=== PATIENT | female | born 1935 | race Caucasian/White ===

== ENCOUNTER 2019-05-22 15:42 | Outpatient (CLI) | payer MEDICARE, SELFPAY ==
--- NOTE | ~2019-05-22 | XR_ITS ---
XR chest 2V DATE: 05/22/2019 16:11 INDICATION: COPD TECHNIQUE: PA and lateral views COMPARISON: None FINDINGS: Mild bilateral hyperinflation. No pulmonary infiltrate or consolidation, pleural effusion o r pulmonary vascular congestion or pneumothorax. Normal heart size. There is thoracic aortic calcification and tortuosity and coronary artery calcific ation. Diffuse osteopenia. IMPRESSION: No active cardiopulmonary disease Thoracic aortic and coronary artery atherosclerosis Reviewed, dictated and finalized at location B. OR BI DEVELOPER
== END 2019-05-22 15:43 | disposition home or self-care (01) ==
LOC: ANHIMG 15:54
PROVIDERS: PCP Family Medicine; Visit Provider Family Medicine
DX: J44.9 Chronic obstructive pulmonary disease, unspecified (principal)
CPT/HCPCS: 71046

== ENCOUNTER 2019-07-21 12:39 | Outpatient (CLI) | payer MEDICARE, SELFPAY ==
--- NOTE | ~2019-07-21 | CT_ITS ---
EXAMINATION: CT brain wo con EXAM DATE: 07/21/2019 13:03 INDICATION: Nausea, visual disturbance. TECHNIQUE: Spiral CT of the head was performed without contrast. Axial, coronal and sagittal images were reviewed. The dose-length product (DLP) for this examination was 529.67 mGy-cm. The exposure w as tailored according to patient size, and iterative reconstruction (ASIR) was used as additional dos e reduction technique. There is no prior study for comparison. FINDINGS: There is no acute intraparenchymal hemorrhage. No evidence of intraparenchymal brain mass lesion. No evidence of acute infarction. Mild microangiopathy and cerebral atrophy. There is no mass effect or midline shift. The ventricles are normal in size. There are no extra-axial collections. There are no acute calvarial fractures. The orbits are unremarkable. Soft tissue is unremarkable. The visualized sinuses and mastoid air cells are well aerated. IMPRESSION: 1. No acute intracranial findings. 2. Mild age-related findings. Reviewed, dictated and finalized at location B.
--- NOTE | ~2019-07-21 | US_ITS ---
EXAMINATION: US carotid duplex BI DATE: 07/21/2019 13:24 INDICATION: Unspecified visual disturbance. TECHNIQUE: Grayscale, color Doppler, and pulsed Doppler images of the cervical carotid arteries were obtained. The degree of vessel stenosis is placed in one of the following categories: normal, <50%, 5 0-69%, >=70% but less than near-occlusion, near-occlusion, or total occlusion. Note that percent sten osis relative to normal distal artery lumen diameter is indirectly measured from velocity measurement s as described by Aubrey, et al. Radiology 2003; 229:340-346. COMPARISON: None. FINDINGS: RIGHT: The right common carotid artery (CCA) peak systolic velocity (PSV) is 47 cm/s. The right internal car otid artery (ICA) PSV is 74 cm/s. The right ICA end-diastolic velocity (EDV) is 30 cm/s. The right IC A/CCA PSV ratio is 1.6. Grayscale and color Doppler images demonstrate plaque in the ICA. There is an tegrade flow in the right vertebral artery. LEFT: The left CCA PSV is 69 cm/s. The left ICA PSV is 72 cm/s. The left ICA EDV is 29 cm/s. The left ICA/C CA PSV ratio is 1.1. Grayscale and color Doppler images yield an estimate of <50% diameter reduction from plaque in the ICA. There is antegrade flow in the left vertebral artery. IMPRESSION: 1. <50% stenosis in the right internal carotid artery. 2. <50% stenosis in the left internal carotid artery. Reviewed, dictated and finalized at location A.
== END 2019-07-21 12:40 | disposition home or self-care (01) ==
PROVIDERS: PCP Family Medicine; Visit Provider Family Medicine
DX: H53.9 Unspecified visual disturbance (principal); I65.23 Occlusion and stenosis of bilateral carotid arteries
CPT/HCPCS: 70450; 93880

== ENCOUNTER 2020-06-16 10:53 | Emergency (ER) | payer MEDICARE, SELFPAY ==
--- NOTE | ~2020-06-16 | XR_ITS ---
EXAMINATION: XR chest 2V DATE: 06/16/2020 11:33 INDICATION: COPD presenting with congestion and shortness of breath. TECHNIQUE: PA and lateral views of the chest were obtained. COMPARISON: Chest radiograph dated 05/22/2019 FINDINGS: Hyperexpansion of lungs consistent with given history of COPD. Right apical pleural-parenchymal scarr ing. Increasing opacities at the anteromedial right lower lung zone which could represent atelectasis and/or pneumonia in the right middle lobe. Mild linear discoid atelectasis at the left posterior sul cus. There is blunting of the right posterior sulcus and costophrenic angle consistent with small rig ht pleural effusion. There are few scattered bilateral calcified pulmonary nodules consistent with ol d granulomatous disease. No pneumothorax. Heart size is normal. Tortuous and atherosclerotic thoracic aorta. Coronary artery calcifications and likely coronary artery stenting. IMPRESSION: 1. Opacities at the anteromedial right lung base which could represent right middle lobe atelectasis and/or pneumonia. 2. Small right pleural effusion. 3. Hyperexpansion of the lungs consistent with given history of COPD. Reviewed, dictated and finalized at location B. E FILER IMPRESSION: 1. Opacities at the anteromedial right lung base which could represent right mi ddle lobe atelectasis and/or pneumonia. 2. Small right pleural effusion. 3. Hyperexpansion of the lungs consistent with given history of COPD.
[2020-06-16 11:14] VITALS: BP 118/99; PULSE 123; RESP 36; TEMP 36.8; O2SAT 95
--- NOTE | 2020-06-16 11:19 | ED.URI ---
HPI - URI/Sore Throat General Chief Complaint: Upper Respiratory Infection Stated Complaint: weakness/congestion/loss of appetite/nausea Source: patient and RN notes reviewed Limitations: no limitations History of Present Illness HPI Narrative: The elderly patient, who is ongoing smoker with COPD, presents with congestion. Patient states she is a 1 day worsening of half week history of cough, congestion. No fever measured, CP, V/D,Calf pain/edema, sputum production, rash, loss of taste/ smell. Symptoms are mild, worse with activity; she has not had a Covid vaccine or disease. Vital signs remarkable for resting tachycardia, and ambulatory pulse ox which remains unchanged at 95. Patient advised that she needs to go to hospital, to which she agrees. Related Data Home Medications Medication Instructions Recorded Confirmed albuterol 90 mcg INHALATION Q4H PRN 06/16/20 06/16/20 albuterol sulfate 2.5 mg INHALATION Q4H PRN 06/16/20 06/16/20 lisinopril 40 mg PO DAILY 06/16/20 06/16/20 metoprolol tartrate 25 mg PO DAILY 06/16/20 06/16/20 omeprazole 20 mg PO DAILY 06/16/20 06/16/20 tiotropium-olodaterol [Stiolto 2 puff INHALATION DAILY 06/16/20 06/16/20 Respimat] Allergies Allergy/AdvReac Type Severity Reaction Status Date / Time No Known Allergies Allergy Verified 06/16/20 11:00 Review of Systems Review of Systems: Narrative: General/Constitutional: No weight loss,fever Eyes: N0: Redness,discharge Ears/Nose/Throat: No: Epistaxis,ear discharge Respiratory: Denies: Hemoptysis Gastrointestinal: No Vomiting, Bleeding-rectal Skin: No Lumps, eruption Neurologic: No Focal Weakness,Sz Hematologic: Denies: Petechiae/Purpura Psychiatric: No: Suicida ideationl All Other Systems: Reviewed and Negative PMFSH Comments At time of signature, agree with nursing past medical, surgical, social and family history. There is no relevant family history pertinent to the presenting complaint Exam Narrative: Exam Narrative: General Appearance: Aged l appearing, in, No distress EYE: PERRLA, EOMI, Conjunctiva clear Ears: External ear normal, Nose: Normal nose, Mouth/Throat: Normal appearing, Normal lips, MM moist, Uvula midline, Pharyngeal erythema Respiratory: Airway patent, tachypneic, increased AP diameter, decreased BS at bases, fine exp wheeze Cardiovascular: No JVD Skin: Warm, Dry, Normal color Neurological: A&O x3, Speech clear, CN II-X intact Psychiatric: Normal mood, Normal affect Course Course Emergency Course: Films visualized, interpreted by radiologist, agree, ABnormal see report MDM Med Decision Making DATA REVIEWED RADIOLOGY: ordered & reviewed PMH RECORDS: reviewed DISCUSSED: with another provider TEST : personally over-read RISKS of M &M CC/PROBLEM severe PROCEDURE low Tx OPTIONS Vital Signs Vital signs: Vital Signs Temperature 98.3 F 06/16/20 11:14 Pulse Rate 123 H 06/16/20 11:14 Respiratory Rate 36 H 06/16/20 11:14 Blood Pressure 118/99 H 06/16/20 11:14 Pulse Oximetry 95 06/16/20 11:14 Temperature 98.3 F 06/16/20 11:14 Pulse Rate 121 H 06/16/20 11:56 Respiratory Rate 28 H 06/16/20 11:56 Blood Pressure 121/61 06/16/20 11:56 Pulse Oximetry 97 06/16/20 11:56 MDM - URI/Sore Throat Lab Data Labs: Lab Results 06/16/20 Range/Units 11:22 POC SARS CoV-2 Ag Negative (Negative) Discharge Plan Discharge Clinical Impression: Pneumonia, COPD exacerbation Patient Disposition: Acute Care Hospital Condition: Serious Instructions: Pneumonia (ED) Additional Instructions: Go to hospital as discussed without fail Prescriptions: No Action omeprazole 20 mg capsule,delayed release(DR/EC) 20 mg PO DAILY RF: 0 lisinopril 40 mg tablet
[2020-06-16] MEDS: AZITHROMYCIN 250 MG TABLET 500 MG PO (11:46)
[2020-06-16 11:56] VITALS: BP 121/61; PULSE 121; RESP 28; O2SAT 97
== END 2020-06-16 11:56 | disposition short-term general hospital (02) ==
PROVIDERS: Emergency Provider Emergency Medicine; PCP Family Medicine
DX: J44.1 Chronic obstructive pulmonary disease with (acute) exacerbation (principal); Z20.822 Contact with and (suspected) exposure to COVID-19; F17.200 Nicotine dependence, unspecified, uncomplicated; I25.10 Atherosclerotic heart disease of native coronary artery without angina pectoris; Z95.5 Presence of coronary angioplasty implant and graft; I25.2 Old myocardial infarction; K21.9 Gastro-esophageal reflux disease without esophagitis; R73.03 Prediabetes
CPT/HCPCS: 71046; 87426; 99213; A9270; C9803; G0463

== ENCOUNTER 2022-01-05 12:23 | Inpatient (IN) | payer MEDICARE, SELFPAY ==
[2022-01-05] VITALS (14 sets, daily range): BP systolic 115–153; BP diastolic 70–100; PULSE 96–119; RESP 14–28; TEMP 36.2–36.6; O2SAT 94–100; BMI 25.9
--- NOTE | ~2022-01-05 | XR_ITS ---
EXAMINATION: XR chest 2V DATE: 01/05/2022 14:15 INDICATION: Chest pain and shortness of breath TECHNIQUE: AP and lateral views of the chest are obtained. COMPARISON: 06/16/2020, 05/22/2019 FINDINGS: The lungs are free of acute opacities. No pleural effusion or pneumothorax. The cardiomedia stinal silhouette is normal. There is moderate thoracic spondylosis. IMPRESSION: 1. No acute cardiopulmonary abnormality. Reviewed, dictated and finalized at location A.
--- NOTE | ~2022-01-05 | US_ITS ---
US right upper quadrant INDICATION: Abdominal pain PROCEDURE: Realtime right upper abdominal ultrasound. COMPARISON: No prior studies for comparison. FINDINGS: The pancreas is normal without focal mass or pancreatic ductal dilation. Liver echotexture is normal without focal mass or intrahepatic biliary dilatation. There is normal directional flow i n the portal vein. The gallbladder is normal without stones, gallbladder wall thickening or pericholecystic fluid. Comm on bile duct measures 7.5 mm. There is mild intrahepatic biliary dilatation. No sonographic Mendoza's sign. IMPRESSION: 1: Mild intrahepatic and extrahepatic biliary dilatation without evidence for obstructing stone or ma ss, possibly related to patient age. Reviewed, dictated and finalized at location A. IMPRESSION: 1: Mild intrahepatic and extrahepatic biliary dilatation without evidence for o bstructing stone or mass, possibly related to patient age.
--- NOTE | 2022-01-05 12:24 | ECG_ITS ---
Measurements Intervals [place] Rate: 111 P: 52 WV: 197 QRS: -29 QRSD: 126 T: 125 QT: 344 QTc: 468 Interpretive Statements SINUS TACHYCARDIA VENTRICULAR PREMATURE COMPLEX POSSIBLE LEFT ATRIAL ENLARGEMENT INTRAVENTRICULAR CONDUCTION DELAY CANNOT RULE OUT SEPTAL INFARCT, AGE INDETERMINATE ST-T WAVE ABNORMALITY IN LAT/HIGH LAT LEADS- CONSIDER ISCHEMIA BASELINE ARTIFACT- I, III, AVL ABNORMAL ECG NO PREVIOUS ECG AVAILABLE FOR COMPARISON Electronically Signed On 01-05-2022 13:00:14 CDT by Jassi Phillips D.O.
[2022-01-05 12:53] LABS: Basophils Percent Auto 0.3 % (0.2-1.2); Eosinophils Absolute Auto 0.1 K/mm3 (0-0.3); Eosinophils Percent Auto 0.8 % (0-4.4); Hematocrit 43.6 % (37.0-47.0); Hemoglobin 13.9 g/dL (12.0-15.0); Immature Granulocyte Absolute 0.05 K/mm3 (0.00-0.031); Immature Granulocyte Percent A 0.5 % (0-0.5); Lymphocytes Absolute Auto 1.08 K/mm3 (0.9-3.2); Lymphocytes Percent Auto 11.2 % (18.3-44.2); Mean Corpuscular HGB Conc 31.9 g/dl (32-36); Mean Corpuscular Hemoglobin 29.8 pg (26-34); Mean Corpuscular Volume 93.6 fl (80-100); Monocytes Absolute Auto 0.7 K/mm3 (0.1-0.6); Monocytes Percent Auto 7.2 % (2.6-8.5); Neutrophils Absolute Auto 7.7 K/mm3 (1.3-6.7); Platelet Count Result 194 k/mm3 (150-375); Red Blood Count 4.66 M/mm3 (4.2-5.4); Red Cell Distribution Width 14.2 % (11.5-14.5); White Blood Count 9.7 K/mm3 (4.5-10.0)
[2022-01-05 13:07] LABS: Alanine Aminotransferase 11 U/L (6-35); Albumin Level 3.9 g/dL (3.5-5.1); Alkaline Phosphatase 86 U/L (38-126); Anion Gap 10 mmol/L (8-16); Aspartate Amino Transferase 18 U/L (14-36); Bilirubin,Total 0.8 mg/dL (0.2-1.3); Blood Urea Nitrogen 14 mg/dL (7-17); Calcium 9.3 mg/dL (8.4-10.2); Carbon Dioxide 25 mmol/L (22-30); Chloride 95 mmol/L (98-107); Estimated CRCL calculation 28 ml/min; Estimated Glomerular Filt Rate 47; Glucose 164 mg/dL (65-110); Lipase 65 U/L (23-300); Sodium 130 mmol/L (137-145)
[2022-01-05 13:08] LABS: INR 1.1; Prothrombin Time 14.2 Seconds (11.1-14.7)
[2022-01-05 13:09] LABS: Partial Thromboplastin Time 35.4 SECONDS (22.3-36.8)
[2022-01-05 13:19] LABS: Troponin I 0.164 ng/mL (0.000-0.034)
[2022-01-05] MEDS: ASPIRIN 81 MG CHEWABLE TABLET 324 MG PO (14:14)
[2022-01-05] MEDS: HEPARIN SODIUM 5,000 UNITS/ML VIAL 3000 UNITS IV PUSH (14:37)
[2022-01-05] MEDS: HEPARIN SOD/D5W 100 UNITS/ML 25,000 UNITS/250 ML BAG 6 UNITS IV CONT (14:38)
--- NOTE | 2022-01-05 14:57 | ED.CHESTPAIN ---
HPI - Chest Pain General Chief Complaint: Chest Pain Stated Complaint: chest pain Time Seen by Provider: 01/05/22 13:59 History of Present Illness HPI narrative: Patient is an 86-year-old female who presents ER with chest discomfort. Reports yesterday she was having a lot of gas in her upper abdomen going into her chest. It is very uncomfortable. Symptoms returned today and then into her left chest. No exertional discomfort. Reports she is been belching. Has history of heart disease and sees Dr. Sears at [facility]. She has history of 3 stents. She has been compliant with home medication. Reports she is undergoing stress recently because her sister in the last week and there is a memorial tomorrow. Related Data Home Medications Medication Instructions Recorded Confirmed lisinopril 40 mg tablet 40 mg PO DAILY 06/16/20 01/05/22 metoprolol tartrate 25 mg tablet 25 mg PO Q12H 06/16/20 01/05/22 omeprazole 20 mg capsule,delayed 20 mg PO DAILY PRN Acid Reflux 06/16/20 01/05/22 release tiotropium 2.5 mcg-olodaterol 2.5 2 puff inhalation DAILY 06/16/20 01/05/22 mcg/actuation mist for inhalation (Stiolto Respimat) albuterol sulfate 90 mcg/actuation 1 puff inhalation DAILY PRN 01/05/22 01/05/22 aerosol inhaler Shortness Of Breath diphenhydramine HCl 25 mg capsule 25 mg PO TID PRN Nasal Congestion 01/05/22 01/05/22 (Benadryl) fluticasone propionate 50 1 spray intranasal BID 01/05/22 01/05/22 mcg/actuation nasal spray,suspension ipratropium 0.5 mg-albuterol 3 mg 3 ml inhalation TID 01/05/22 01/05/22 (2.5 mg base)/3 mL nebulization soln menthol 3.2 mg lozenges (Stephan 6.4 mg mucous membrane Q2-4H PRN 01/05/22 01/05/22 Cough Drops) Cough triamcinolone acetonide 0.1 % 1 applic topical DAILY PRN Rash 01/05/22 01/05/22 topical cream Allergies Allergy/AdvReac Type Severity Reaction Status Date / Time No Known Allergies Allergy Verified 01/05/22 16:43 Review of Systems Review of Systems: All systems reviewed & are unremarkable except as noted in HPI and below Constitutional: Constitutional: Denies chills, Denies fatigue and Denies fever(s) ENT: Denies nasal congestion and Denies sore throat Cardiovascular: Cardiovascular: Reports chest pain, Denies rapid heart rate and Denies radiating jaw, neck or arm pain Respiratory: Respiratory: Denies cough and Denies dyspnea Gastrointestinal: Gastrointestinal: Denies abdominal pain, Reports bloating, Denies nausea and Denies vomiting Musculoskeletal: Musculoskeletal: Denies back pain and Denies arthralgias [facility] Social History Social History Smoking packs per day: 1 Smoking cigarettes per day: 20.0 Years smoked: 40 Smoking pack-years: 40.00 Smoking status: Heavy tobacco smoker Tobacco type: cigarettes Alcohol intake: never Substance use: never Spiritual care concerns: No Exam Narrative: GENERAL: Well-appearing, well-nourished, and in no acute distress. HEAD: Normocephalic, atraumatic. EYES: PERRL and EOMI. ENT: Mucous membranes moist. CHEST: Clear to auscultation. No respiratory distress. HEART: Regular rate and rhythm. Normal peripheral pulses. ABDOMEN: Soft, nontender, nondistended, normal active bowel sounds. EXTREMITIES: Normal range of motion. No edema. SKIN: Warm, dry, no rash. NEURO: Alert and oriented x3. PSYCH: Normal mood and affect. Course Course Emergency Course: Discussed with cardiology and Dr. Lacy will come see the patient. Patient to be started on heparin drip and admitted to hospitalist service. Vital Signs Vital signs: Vital Signs Temperature 97.2 F L 01/05/22 12:47 Pulse Rate 110 H 01/05/22 12:47 Respiratory Rate 22 H 01/05/22 12:47 Blood Pressure 139/83 01/05/22 12:47 Pulse Oximetry 100 01/05/22 12:47 Oxygen Delivery Room Air 01/05/22 12:47 Temperature 97.9 F 01/05/22 16:00 Pulse Rate 114 H 01/05/22 16:00 Respiratory Rate 20
--- NOTE | 2022-01-05 15:15 | PM.CNCAR ---
Assessment and Plan Assessment and plan (1) Chest pain: Code(s): R07.9 - Chest pain, unspecified Status: Acute (2) Incomplete left bundle branch block: Code(s): I44.7 - Left bundle-branch block, unspecified Status: Acute (3) Troponin I above reference range: Code(s): R77.8 - Other specified abnormalities of plasma proteins Status: Acute Plan This is an 86-year-old woman apparently coronary disease remote history of percutaneous revascularization and history of ongoing smoking. She comes to the hospital with a multitude of symptoms including right and left lateral dominant pain, some low substernal or epigastric pain and then some frontal head pain as well. Her ECG demonstrates an incomplete left bundle branch block but no serious ischemic abnormalities her troponin level is modestly elevated. I would recommend aspirin, beta-odilia, heparin and statin therapy. She will be admitted to the hospital here where her troponins will be tracked. If there is a significant rise in the troponin then we will consider angiography while she is here at [facility]. I do not believe this is a situation where I would recommend urgent/emergent angiography right now. She has a variety of symptoms which are for the most part obviously not related to myocardial ischemia. Randy Lacy MD [facility] History of Present Illness History of Present Illness Consult date/time: 01/05/22 15:15 Reason For Visit: chest pain Narrative: This is an 86-year-old woman I am seeing in the emergency room who is being evaluated because of chest pain in a being asked to see her to determine if she really is needing urgent angiography. The patient is unknown to me prior to this encounter. She does have a history of coronary disease but does not receive any of her care here at [facility]. Her respiratory therapy manager is in the [place] area. She was in her usual state of health at home yesterday she started to have pain in her abdomen she describes some mid abdominal pain radiating to both the right and left upper quadrants and lateral abdominal area. She did not have any symptoms of pain in her chest at that time those symptoms wax and wane yesterday. She was concerned about her gallbladder because she says the pain began after eating a meal yesterday because of that she has not eaten anything since that. This morning she started to have some pain in the low substernal region that seemed different to her she then also had some pain up in her frontal aspect of her head sheath was concerned about her sinuses. Even though none of her physicians are here at [facility] she came here for evaluation. She states she did not go to her respiratory therapy manager practices because she did not think this was a cardiac problems. In the emergency room her electrocardiogram shows a sinus rhythm with an incomplete left bundle branch block. Troponin levels of course were done and they are elevated at 0.1. I am seeing her in this setting in consultation. Because of the elevated troponin she was started on a heparin infusion and given some aspirin. She is not having any shortness of breath orthopnea PND or edema. She had apparently has a history of coronary artery disease and had coronary stenting done many years ago she describes 2 stenting procedures 1 approximately 20 years ago and 1 about 18 years ago. We do not have any details of any of those procedures. She does not believe she has had any recent cardiac problems and she does follow-up with her respiratory therapy manager regularly. She has prescriptions for metoprolol lisinopril and is supposed to be taking aspirin. She is not sure that she takes any of this medicine. She is not on anti-lipid agent. There are no known medical allergies. She is a ongoing cigarette smoker despite advice of her physicians to abstain from smoking Review of Systems Constitutional: Constitutional: Reports lethargy Eyes: Eyes: Reports n
[2022-01-05 15:38] LABS: SARS-CoV-2 RNA PCR Negative
[2022-01-05 15:59] LABS: Troponin I 0.168 ng/mL (0.000-0.034)
--- NOTE | 2022-01-05 16:21 | ADMGEN ---
This patient, Carol Carmichael, was admitted to IMU Room 213-01. Patient/family oriented to hospital policies and general routines including ID bracelet, bed and alarms, visiting hours, pain management, procedures, bathroom and other care routines, personal items, smoking policy, room service/diet, and visiting hours. Information on how to activate the Rapid Response Team has been discussed. Patient/Family are encouraged to report perceived risks to care and to ask questions if they do not understand what they are told or what they should do.
[2022-01-05 20:03] LABS: Troponin I 0.161 ng/mL (0.000-0.034)
--- NOTE | 2022-01-05 20:27 | PM.IMHP ---
H&P: HPI History of Present Illness Date/Time: 01/05/22 20:27 Chief Complaint: Chest pain Narrative: this is a 86 year old female patient who has a history of coronary artery disease And COPD. the patient has a history of having 3 coronary stents. The patient also has a history of GERD and has not been taking her omeprazole recently. Patient is in the room belching. The patient's discomfort started yesterday and she has been having episodes of belching. Her symptoms aside yesterday and then returned today. The patient typically sees Dr. Greenberg at [facility]. She has been compliant with her home medications. The patient has been having a lot of emotional stress as 1 of her sisters just recently passed this last week. Her sodium is 130. Chloride 95. Blood sugar 164. Troponin 0.168 and 0.161. The patient is negative for COVID. The patient was started on heparin drip. Her EKG was read as sinus tachycardia ventricular premature complex cannot rule out septal infarction. Cardiology has been consulted and has already evaluated the patient. It was noted that her EKG demonstrated and incomplete left bundle branch block but no serous ischemic abnormalities. the patient has been complaining of epigastric pain that is across to her right and left upper quadrant. She said she feels a soreness in her left upper chest. Cardiology recommends aspirin, beta-odilia, heparin and statin therapy. the patient is being initially was being admitted to observation but then was changed to inpatient. date of service 01/05/2022 Review of Systems Review of Systems: See HPI All systems reviewed & are unremarkable except as noted in HPI and below Constitutional: Constitutional: Reports as per HPI and Reports no additional constitutional complaints Eyes: Eyes: Reports as per HPI and Reports no additional eye complaints ENT: Reports system reviewed and no additional complaints, except as documented and Reports Normal hearing present Cardiovascular: Cardiovascular: Reports no additional cardiovascular complaints Respiratory: Respiratory: Reports no additional respiratory complaints and Reports no additional respiratory complaints Gastrointestinal: Gastrointestinal: Reports as per HPI and Reports no additional gastrointestinal complaints Musculoskeletal: Musculoskeletal: Reports no additional musculoskeletal complaints Integumentary/Breasts: Skin/Breast: Reports system reviewed and no additional complaints, except as docu and Reports as per HPI Neurologic: Reports system reviewed and no additional complaints, except as documented, Reports as per HPI and Reports Normal hearing present Psychiatric: Psychiatric: Reports no additional psychiatric complaints and Reports as per HPI Endocrine: Endocrine: Reports no additional endocrine complaints Hematologic/Lymphatic: Hematologic/Lymphatic: Reports no additional hematologic/lymphatic complaints Allergic/Immunologic: Allergic/Immunologic: Reports no additional allergic/immunologic complaints [facility] Past Medical History Medical History (Updated 01/05/22 @ 20:44 by Sherice Ruiz NP) Chronic GERD COPD (chronic obstructive pulmonary disease) HTN (hypertension), malignant Tobacco abuse Surgical History Surgical History (Updated 01/05/22 @ 20:44 by Sherice Ruiz NP) H/O heart artery stent x3 H/O knee surgery H/O: hysterectomy History of appendectomy History of back surgery Family History Family History (Updated 01/05/22 @ 20:48 by Sherice Ruiz NP) Sibling Cancer 1 brother and 3 sisters had cancer Father Alcoholism Mother Heart disease Son Heart disease Social History Social History (Updated 01/05/22 @ 20:49 by Shreice Ruiz NP) Social History: the patient continues to smoke a pack a cigarettes a day. The patient had 4 children. She was a homemaker. She lives with her daughter. She denies any alcohol marijuana or illicit drugs. He
[2022-01-05 20:45] LABS: INR 1.1; Prothrombin Time 14.1 Seconds (11.1-14.7)
[2022-01-05 20:46] LABS: Partial Thromboplastin Time 51.9 SECONDS (22.3-36.8)
--- NOTE | 2022-01-05 21:00 | PC.NURSE ---
Patient's troponin resulted at 0.161 at 2001. This RN notified Dr. Christianson and received no new orders but to continue Heparin gtt at this time and will reassess in the morning. Will continue to monitor.
[2022-01-05] MEDS: HEPARIN SODIUM 5,000 UNITS/ML VIAL 4000 UNITS IV PUSH (21:01)
[2022-01-05] MEDS: ALBUTEROL SULFATE NEB 2.5 MG/3 ML INH INHALATION (21:10)
[2022-01-05] MEDS: IPRATROPIUM BR 0.02% INH SOLN 0.5 MG/2.5 ML VIAL INHALATION (21:10)
[2022-01-05] MEDS: methylPREDNISolone SOD SUCC 40 MG VIAL IV PUSH (21:31)
[2022-01-05] MEDS: METOPROLOL TARTRATE 25 MG TABLET PO (21:31)
[2022-01-05] MEDS: ACETAMINOPHEN 325 MG TABLET 650 MG PO (22:15)
[2022-01-06] VITALS (20 sets, daily range): BP systolic 110–124; BP diastolic 66–97; PULSE 74–119; RESP 16–20; TEMP 36.1–36.6; O2SAT 93–98
--- NOTE | 2022-01-06 | ECHO_ITS ---
Patient Info Name: Carol Carmichael Age: 86 years : 1935 Gender: Female Ht: 66 in Wt: 160 lbs BSA: 1.85 m2 HR: 78 bpm BP: 110 / 72 mmHg Heart Rhythm: Sinus Rhythm Technical Quality: Fair Exam Date: 01/06/2022 8:17 AM Exam Location: [facility] Pulmonary Exam Room: 213 Patient Status: Inpatient Admit Date: 01/05/2022 Staff Ordering Physician: Sherice Ruiz NP Information Technology Auditor: Adele Mejia RDCS Attending Provider: Randy Swartz MD Referring Physician: Sara BLOOD; Exam Type: CA echo dop color flow w con Study Info Indications - cad chest discomfort Complete two-dimensional, color flow and Doppler transthoracic echocardiogram is performed with contrast to opacify the left ventricle and to improve the deliniation of the left ventricle endocardial borders. Contrast/Agitated Saline Contrast/Ag. Saline: Definity Amount: 2.00 ml Administered By: Adele Mejia [facility] Existing IV Access: Yes IV Access Condition: patent with no signs of infiltration Summary 1. Moderate left ventricular enlargement with moderate eccentric left ventricular hypertrophy. Severe global hypokinesis is present with thinning and akinesis of the apex. False tendon is noted in the apex; doubt any pseudoaneurysm. Ejection fraction 15-20%. No thrombus visualized. Diastolic dysfunction is present. 2. Left atrial chamber dimension is moderately enlarged. 3. There is at least mild aortic valve stenosis with a peak velocity of 2.0 cm/s, mean gradient of 9 mmHg, and aortic valve area of 1.67 cm2. However, however, the peak transvalvular velocity may be low due to poor cardiac output and the aortic stenosis may be worse. There is severe calcification of the aortic valve with decreased valve excursion. Consider further evaluation of the degree of aortic stenosis if clinically indicated. 4. There is mild mitral valve regurgitation. 5. There is mild tricuspid valve regurgitation. 6. No pulmonary hypertension, estimated pulmonary arterial systolic pressure is 28 mmHg. 7. Normal sinus rhythm. Left Ventricle Left ventricular chamber dimension is moderately enlarged. Left ventricular systolic function is severely reduced, estimated at 15-20%. There is moderately increased left ventricular wall thickness. Left ventricular septal wall motion is normal. The left ventricular diastolic function is abnormal. Right Ventricle Right ventricular chamber dimension is normal. Right ventricular systolic function is normal. Left Atria Left atrial chamber dimension is moderately enlarged. Right Atria Right atrial chamber dimension is normal. Aortic Valve The aortic valve is trileaflet. There is no aortic valve sclerosis. There is at least mild aortic valve stenosis with a peak velocity of 2.0 cm/s, mean gradient of 9 mmHg, and aortic valve area of 1.67 cm2. However, however, the peak transvalvular velocity may be low due to poor cardiac output and the aortic stenosis may be worse. There is severe calcification of the aortic valve with decreased valve excursion. Consider further evaluation of the degree of aortic stenosis if clinically indicated. There is trace aortic valve regurgitation. There is moderate aortic valve calcification. Pulmonic Valve The pulmonic valve is normal. There is no pulmonic valve stenosis. There is no pulmonic regurgitation. Mitral Valve The mitral valve has normal leaflets. There is no mitral valve stenosis. There is mild mitral valv
[2022-01-06 03:44] LABS: Basophils Percent Auto 0.2 % (0.2-1.2); Eosinophils Percent Auto 0.2 % (0-4.4); Hematocrit 41.8 % (37.0-47.0); Hemoglobin 13.6 g/dL (12.0-15.0); Immature Granulocyte Absolute 0.03 K/mm3 (0.00-0.031); Immature Granulocyte Percent A 0.5 % (0-0.5); Lymphocytes Absolute Auto 0.51 K/mm3 (0.9-3.2); Lymphocytes Percent Auto 8.5 % (18.3-44.2); Mean Corpuscular HGB Conc 32.5 g/dl (32-36); Mean Corpuscular Volume 92.1 fl (80-100); Mean Platelet Volume 11.1 fl (7.4-10.4); Monocytes Absolute Auto 0.1 K/mm3 (0.1-0.6); Monocytes Percent Auto 1.8 % (2.6-8.5); Neutrophils Absolute Auto 5.3 K/mm3 (1.3-6.7); Neutrophils Percent Auto 88.8 % (45.5-73.1); Platelet Count Result 189 k/mm3 (150-375); Red Blood Count 4.54 M/mm3 (4.2-5.4); Red Cell Distribution Width 13.9 % (11.5-14.5)
[2022-01-06 03:47] LABS: Alanine Aminotransferase 11 U/L (6-35); Albumin Level 3.6 g/dL (3.5-5.1); Alkaline Phosphatase 82 U/L (38-126); Anion Gap 10 mmol/L (8-16); Aspartate Amino Transferase 20 U/L (14-36); Bilirubin,Total 0.7 mg/dL (0.2-1.3); Blood Urea Nitrogen 15 mg/dL (7-17); Calcium 8.9 mg/dL (8.4-10.2); Carbon Dioxide 27 mmol/L (22-30); Chloride 97 mmol/L (98-107); Estimated CRCL calculation 35 ml/min; Estimated Glomerular Filt Rate 53; Glucose 175 mg/dL (65-110); Lactate Dehydrogenase 110 U/L (120-246); Lactic Acid Reflex 0.8 mmol/L (0.7-2.0); Partial Thromboplastin Time 158.2 SECONDS (22.3-36.8); Potassium 4.3 mmol/L (3.4-5.0); Sodium 134 mmol/L (137-145)
[2022-01-06 04:36] LABS: Thyroid Stimulating Hormone Reflex 0.739 uIU/mL (0.465-4.68)
[2022-01-06] MEDS: methylPREDNISolone SOD SUCC 40 MG VIAL IV PUSH ×3 (05:22→17:34)
[2022-01-06] MEDS: IPRATROPIUM BR 0.02% INH SOLN 0.5 MG/2.5 ML VIAL INHALATION ×3 (08:32→20:34)
[2022-01-06] MEDS: ALBUTEROL SULFATE NEB 2.5 MG/3 ML INH INHALATION ×3 (08:32→20:34)
--- NOTE | 2022-01-06 08:38 | PM.IMPN ---
Progress Note: A&P Assessment and Plan (1) Chest pain: Code(s): R07.9 - Chest pain, unspecified Status: Acute Assessment and Plan: Troponin downtrending this morning. No pneumonia on chest xray. Is on room air with adequate oxygenation and does not appear to be having a COPD exacerbation. Wells's score 0. Patient no longer having chest pain. Echo pending. - Her safety specialist is Dr. Smart at [place] -Appreciate recommendations from Cardiology (2) Troponin I above reference range: Code(s): R77.8 - Other specified abnormalities of plasma proteins Status: Acute Assessment and Plan: Appreciate Cardiology recommendations. (3) COPD (chronic obstructive pulmonary disease): Code(s): J44.9 - Chronic obstructive pulmonary disease, unspecified Status: Acute Assessment and Plan: Patient does not appear to be having a COPD exacerbation. -Discontinue methylprednisolone -Continue duo nebs as PRN -Continue Spiriva (4) Tobacco abuse: Code(s): Z72.0 - Tobacco use Status: Acute Assessment and Plan: Nicotine patch. (5) HTN (hypertension), malignant: Code(s): I10 - Essential (primary) hypertension Status: Acute Assessment and Plan: Takes lisinopril and metoprolol at home. Continue. Will monitor. (6) Chronic GERD: Code(s): K21.9 - Gastro-esophageal reflux disease without esophagitis Status: Acute Assessment and Plan: - resume omeprazole Plan On heparin ggt Full Code On PPI Subjective Date/time seen: 01/06/22 08:38 Patient says she has a history of having two heart attacks. She says she had an episode of horrible reflux and vomiting and when she went to the emergency department she was told she had a heart attack. She says overnight she did have some chest pain and felt like her heart was racing. She denies lightheadedness, shortness of breath. She also reports abdominal pain and ask about an ultrasound. Review of Systems Cardiovascular: Cardiovascular: Reports chest pain, Denies lightheadedness and Reports palpitations Respiratory: Respiratory: Denies dyspnea Gastrointestinal: Gastrointestinal: Reports abdominal pain Exam Narrative: GENERAL: NAD, cooperative HEENT: Normocephalic, atraumatic, anicteric NECK: Supple CV: Normal S1, S2, RRR, No MRG, No reproducible chest pain with palpation of the chest wall. RESP: CTAB, Normal work of breathing. Abdomen: Soft, non-tender, non-distended, +BS EXTREMITIES: Warm and well perfused, no clubbing, cyanosis, or edema. SKIN: warm, dry and intact. NEURO: CN 2-12 grossly intact. Objective Data Vital Signs Vital Signs: Vital Signs - 24 hr 01/05/22 12:47 01/05/22 14:15 01/05/22 14:15 Temperature 97.2 F L Pulse Rate 110 H 112 H Respiratory Rate 22 H Blood Pressure 139/83 Pulse Oximetry 100 Oxygen Delivery Room Air Room Air Fraction of Inspired Oxygen 01/05/22 14:17 01/05/22 14:48 01/05/22 14:18 Temperature Pulse Rate 114 H 110 H 114 H Respiratory Rate 20 20 28 H Blood Pressure 150/94 H 148/90 H 150/94 H Pulse Oximetry 100 100 97 Oxygen Delivery Fraction of Inspired Oxygen 01/05/22 15:31 01/05/22 16:00 01/05/22 18:36 Temperature 97.9 F Pulse Rate 104 H 114 H Respiratory Rate 14 20 Blood Pressure 119/70 153/100 H Pulse Oximetry 97 100 Oxygen Delivery Room Air Fraction of Inspired Oxygen 01/05/22 18:00 01/05/22 19:52 01/05/22 20:00 Temperature 97.3 F L Pulse Rate 106 H 119 H 119 H Respiratory Rate 24 H 24 H Blood Pressure 115/89 Pulse Oximetry 100 100 Oxygen Delivery Room Air Fraction of Inspired Oxygen 01/05/22 21:11 01/05/22 21:25 01/05/22 21:25 Temperature Pulse Rate 106 H 106 H 106 H Respiratory Rate 22 H 20 Blood Pressure Pulse Oximetry 94 Oxygen Delivery Room Air Fraction of Inspired Oxygen 01/05/22 21:31 01/05/22 20:00 01/05/22 22:
[2022-01-06] MEDS: ATORVASTATIN 20 MG TABLET PO (09:12)
[2022-01-06] MEDS: METOPROLOL TARTRATE 25 MG TABLET PO ×2 (09:12→21:53)
[2022-01-06] MEDS: FLUTICASONE PROPIONATE 0.05% NA SPR 16 GM BTL (*BKC) 1 SPRAY NASAL (09:13)
[2022-01-06] MEDS: ASPIRIN 81 MG ENTERIC TABLET PO (09:13)
[2022-01-06 09:34] LABS: Troponin I 0.094 ng/mL (0.000-0.034)
[2022-01-06] MEDS: PERFLUTREN LIPID MICROSPHERES 1.5 ML VIAL DILUTED TO 10 ML TOTAL VOLUME IV PUSH (11:38)
--- NOTE | 2022-01-06 11:39 | IVDEFINITY ---
Prior to administration of IV Definity the patient was educated on the risks and benefits of the imaging enhancing agent including potential adverse side effects. The patient verbalized understanding. Allergies were verified. No exclusion criteria were identified and at least one of the following inclusion criteria were met: 1) physician request, 2) patient technically difficult to image (per the [place] [employer]chocardi[employer] guidelines of two or more segments not discernable within the apical view), or 3) questionable left ventricular function. ?
[2022-01-06 12:02] LABS: Partial Thromboplastin Time 50.7 SECONDS (22.3-36.8)
[2022-01-06] MEDS: HEPARIN SODIUM 5,000 UNITS/ML VIAL 4000 UNITS IV PUSH (12:12)
--- NOTE | 2022-01-06 12:31 | PM.PNCARD ---
Progress Note: A&P Assessment and Plan (1) Elevated troponin: Code(s): R77.8 - Other specified abnormalities of plasma proteins Status: Acute Assessment and Plan: Elevated troponins, flat curve then declined, unclear etiology. Patient has a complex past cardiac history and we do not have any old records. Symptoms were atypical Echo shows severe LV dysfunction, and I presume some of this is old. Plan was to discontinue heparin if the patient's troponins declined, so I will DC heparin. (2) Chest pain: Code(s): R07.9 - Chest pain, unspecified Status: Acute Assessment and Plan: Atypical chest pain, abdominal pain. Gallbladder ultrasound scheduled for tomorrow (3) History of coronary artery disease: Code(s): Z86.79 - Personal history of other diseases of the circulatory system Status: Acute Assessment and Plan: History of CAD, stents in the past, followed by Dr. Smart in [place] Continue aspirin, atorvastatin, metoprolol (4) Tobacco abuse: Code(s): Z72.0 - Tobacco use Status: Acute Assessment and Plan: Patient smokes cigarettes, having trouble with nicotine withdrawal, requests nicotine patch. Discussed risks and benefits a nicotine patch, will provide for the patient. (5) Cardiomyopathy: Code(s): I42.9 - Cardiomyopathy, unspecified Status: Acute Assessment and Plan: Significant cardiomyopathy, EF 15-20% with cardiomegaly etc.. Patient is taking metoprolol and lisinopril at home. Will see if we can find any old records Follow-up with Dr. Sears for ongoing medical management Will try to find old records. Subjective Date/time seen: Patient with a history of CAD followed by Dr. Sears of [facility] in [place], h/o coronary interventions, admitted with a variety of complaints as well as some atypical chest discomfort. Her troponins were elevated in the emergency room and she was started on a heparin drip. Troponins were 0.164, 0.168, 0.161 and 0.094. She was seen by Dr. Lacy who did not think she had ACS and did not need an urgent cardiac catheterization. She was placed on heparin. 01/06/22 16:39: Patient upset that she has been NPO but has not been able to get her gallbladder ultrasound done today. Feels a lot better, no further problems with the migratory chest pain, abdominal discomfort or belching. Granddaughter at bedside; apparently there is some known heart damage but unclear of the extent. Patient requests nicotine patch; smokes 1 pack per day at home. She would like to go home soon. Echo showed EF of 15-20%. Review of Systems Constitutional: Constitutional: Denies fever(s) Cardiovascular: Cardiovascular: Denies chest pain, Denies pedal edema, Denies lightheadedness and Denies dyspnea Respiratory: Respiratory: Denies chest congestion and Denies dyspnea Gastrointestinal: Gastrointestinal: Denies abdominal pain and Denies hematochezia Musculoskeletal: Musculoskeletal: Reports no additional musculoskeletal complaints Integumentary/Breasts: Skin/Breast: Reports system reviewed and no additional complaints, except as docu Neurologic: Reports system reviewed and no additional complaints, except as documented, Denies behavioral changes and Denies confusion Psychiatric: Psychiatric: Reports anxiety, Denies behavioral changes and Denies confusion Exam Narrative: Talkative, anxious, scattered historian, no distress Const: General: cooperative, healthy appearing and comfortable; No confusion Orientation/consciousness: oriented to person, patient oriented x3 and No confusion Eyes: EOM: EOMs intact bilaterally Neck: Neck: supple and no JVD Resp: Effort & Inspection: normal respiratory effort Auscultation: clear to auscultation bilaterally Cardio: Rate: regular rate Rhythm: regular rhythm Heart sounds: no murmurs GI: Inspection: normal to inspection GI Pa
[2022-01-06] MEDS: NICOTINE (*PBKC) 14 MG PATCH 1 PATCH TRANSDERM (17:34)
[2022-01-07] VITALS (21 sets, daily range): BP systolic 118–135; BP diastolic 67–82; PULSE 86–105; RESP 14–20; TEMP 36.3–36.9; O2SAT 96–98
[2022-01-07 05:29] LABS: Basophils Percent Auto 0.1 % (0.2-1.2); Hematocrit 38.1 % (37.0-47.0); Hemoglobin 12.4 g/dL (12.0-15.0); Immature Granulocyte Absolute 0.07 K/mm3 (0.00-0.031); Immature Granulocyte Percent A 0.7 % (0-0.5); Lymphocytes Absolute Auto 0.72 K/mm3 (0.9-3.2); Lymphocytes Percent Auto 6.7 % (18.3-44.2); Mean Corpuscular HGB Conc 32.5 g/dl (32-36); Mean Corpuscular Hemoglobin 29.7 pg (26-34); Mean Corpuscular Volume 91.4 fl (80-100); Monocytes Absolute Auto 0.5 K/mm3 (0.1-0.6); Monocytes Percent Auto 4.7 % (2.6-8.5); Neutrophils Absolute Auto 9.4 K/mm3 (1.3-6.7); Neutrophils Percent Auto 87.8 % (45.5-73.1); Platelet Count Result 228 k/mm3 (150-375); Red Blood Count 4.17 M/mm3 (4.2-5.4); Red Cell Distribution Width 13.5 % (11.5-14.5); White Blood Count 10.7 K/mm3 (4.5-10.0)
[2022-01-07 05:44] LABS: Anion Gap 9 mmol/L (8-16); Blood Urea Nitrogen 24 mg/dL (7-17); Calcium 8.9 mg/dL (8.4-10.2); Carbon Dioxide 26 mmol/L (22-30); Chloride 95 mmol/L (98-107); Estimated CRCL calculation 35 ml/min; Estimated Glomerular Filt Rate 53; Glucose 169 mg/dL (65-110); Potassium 3.8 mmol/L (3.4-5.0); Sodium 130 mmol/L (137-145)
[2022-01-07] MEDS: ALBUTEROL SULFATE NEB 2.5 MG/3 ML INH INHALATION ×3 (08:21→20:53)
[2022-01-07] MEDS: IPRATROPIUM BR 0.02% INH SOLN 0.5 MG/2.5 ML VIAL INHALATION ×3 (08:22→20:55)
--- NOTE | 2022-01-07 08:55 | PM.IMPN ---
Progress Note: A&P Assessment and Plan (1) Chest pain: Code(s): R07.9 - Chest pain, unspecified Status: Acute Assessment and Plan: Echo with EF 15-20%, no thrombus, severe global hypokinesis, aortic stenosis. Pat - Her dry house worker is Dr. Smart at [place] -Appreciate recommendations from Cardiology -Per Cardiology will work to add entresto and spironolactone if BP tolerates. (2) Abdominal pain: Code(s): R10.9 - Unspecified abdominal pain Status: Acute Assessment and Plan: RUQ shows intra and extrahepatic duct dilation but no stones or cholecystitis. Will monitor. (3) Troponin I above reference range: Code(s): R77.8 - Other specified abnormalities of plasma proteins Status: Acute Assessment and Plan: Appreciate Cardiology recommendations. (4) COPD (chronic obstructive pulmonary disease): Code(s): J44.9 - Chronic obstructive pulmonary disease, unspecified Status: Acute Assessment and Plan: Patient does not appear to be having a COPD exacerbation. -Continue duo nebs as PRN -Continue Spiriva (5) Tobacco abuse: Code(s): Z72.0 - Tobacco use Status: Acute Assessment and Plan: Nicotine patch. (6) HTN (hypertension), malignant: Code(s): I10 - Essential (primary) hypertension Status: Acute Assessment and Plan: Takes lisinopril and metoprolol at home. Continue. Will monitor. (7) Chronic GERD: Code(s): K21.9 - Gastro-esophageal reflux disease without esophagitis Status: Acute Assessment and Plan: Pantoprazole PRN. Subjective Date/time seen: 01/07/22 08:55 Patient says her main problem is her abdominal pain and wants to know what the ultrasound showed. She says it was finished about 20 minutes before I entered the room. She denies chest pain. She says she thinks her dry house worker is surprised by how long she has lived. Patient says she has been feeling more tired than usual for about a months but due to transportation issues and has been unable to get in to see a doctor. Review of Systems Gastrointestinal: Gastrointestinal: Reports abdominal pain Exam Narrative: GENERAL: NAD, cooperative HEENT: Normocephalic, atraumatic, anicteric NECK: Supple CV: Normal S1, S2, RRR, No MRG RESP: CTAB, Normal work of breathing. Abdomen: Soft, non-tender, non-distended EXTREMITIES: Warm and well perfused, no clubbing, cyanosis, or edema. SKIN: warm, dry and intact. NEURO: CN 2-12 grossly intact. Objective Data Vital Signs Vital Signs: Vital Signs - 24 hr 01/06/22 09:12 01/06/22 12:00 01/06/22 13:58 Temperature 36.4 C L Pulse Rate 85 77 81 Respiratory Rate 16 20 Blood Pressure 120/74 Pulse Oximetry 98 Oxygen Delivery 01/06/22 14:07 01/06/22 10:00 01/06/22 12:00 Temperature Pulse Rate 85 80 75 Respiratory Rate 20 Blood Pressure Pulse Oximetry Oxygen Delivery 01/06/22 16:00 01/06/22 12:00 01/06/22 14:00 Temperature 36.3 C L Pulse Rate 95 90 Respiratory Rate 20 Blood Pressure 119/97 H Pulse Oximetry 98 98 Oxygen Delivery Room Air 01/06/22 16:00 01/06/22 18:00 01/06/22 16:00 Temperature Pulse Rate 85 88 Respiratory Rate Blood Pressure Pulse Oximetry 98 Oxygen Delivery Room Air 01/06/22 20:00 01/06/22 20:36 01/06/22 21:53 Temperature 36.1 C L Pulse Rate 101 H 80 119 H Respiratory Rate 20 16 Blood Pressure 124/74 Pulse Oximetry 93 Oxygen Delivery 01/06/22 20:00 01/06/22 20:00 01/06/22 22:00 Temperature Pulse Rate 101 H 110 H 119 H Respiratory Rate 20 Blood Pressure Pulse Oximetry 93 Oxygen Delivery Room Air 01/07/22 00:00 01/06/22 23:55 01/07/22 00:00 Temperature 36.3 C L Pulse Rate 100 100 101 H Respiratory Rate 18 18 Blood Pressure 120/67 Pulse Oximetry 97 97 Oxygen Delivery Room Air 01/07/22 02:00 01/07/22 04:00
[2022-01-07 09:11] LABS: Glucose Point of Care 167 mg/dl (65-105)
[2022-01-07] MEDS: FLUTICASONE PROPIONATE 0.05% NA SPR 16 GM BTL (*BKC) 1 SPRAY NASAL (09:19)
[2022-01-07] MEDS: ASPIRIN 81 MG ENTERIC TABLET PO (09:19)
[2022-01-07] MEDS: ATORVASTATIN 20 MG TABLET PO (09:20)
[2022-01-07] MEDS: NICOTINE (*PBKC) 14 MG PATCH 1 PATCH TRANSDERM (09:20)
[2022-01-07] MEDS: METOPROLOL TARTRATE 25 MG TABLET PO ×2 (09:20→20:31)
--- NOTE | 2022-01-07 12:23 | ECG_ITS ---
Measurements Intervals [place] Rate: 96 P: 62 [place]: 220 QRS: -32 QRSD: 122 T: 132 QT: 362 QTc: 457 Interpretive Statements SINUS RHYTHM WITH FIRST DEGREE AV BLOCK VENTRICULAR PREMATURE COMPLEX LEFT AXIS DEVIATION POSSIBLE LEFT ATRIAL ENLARGEMENT INTRAVENTRICULAR CONDUCTION DELAY CANNOT RULE OUT SEPTAL INFARCT, AGE INDETERMINATE ST-T WAVE ABNORMALITY IN ANTEROLAT/HIGH LAT LEADS- CONSIDER ISCHEMIA ABNORMAL ECG COMPARED TO ECG 01/05/2022 12:36:23 HEART RATE HAS DECREASED Electronically Signed On 01-07-2022 13:55:38 CDT by Jassi Phillips D.O.
--- NOTE | 2022-01-07 12:24 | PM.PNCARD ---
Progress Note: A&P Assessment and Plan (1) Elevated troponin: Code(s): R77.8 - Other specified abnormalities of plasma proteins Status: Acute Assessment and Plan: Symptoms were atypical. Elevated troponins, flat curve then declined, symptoms atypical Doubt ACS No evolution of EKG changes (lateral T wave inversion, possible ischemia, appears old and stable) Heparin discontinued No further chest discomfort (2) Chest pain: Code(s): R07.9 - Chest pain, unspecified Status: Acute Assessment and Plan: Atypical chest pain, abdominal pain. Gallbladder ultrasound showed no stones History of GI problems. (3) History of coronary artery disease: Code(s): Z86.79 - Personal history of other diseases of the circulatory system Status: Acute Assessment and Plan: History of CAD, stents in the past, followed by Dr. Smart in [place] Continue aspirin, atorvastatin, metoprolol (4) Cardiomyopathy: Code(s): I42.9 - Cardiomyopathy, unspecified Status: Acute Assessment and Plan: Significant cardiomyopathy, EF 15-20% with cardiomegaly etc.. History of left ventricular aneurysm; however, this severe degree of LV dysfunction appears new. Patient is taking metoprolol and lisinopril at home; may benefit from the addition of spironolactone and changing lisinopril to Entresto. Will start Entresto at 24/26 mg half a tablet b.i.d.. Will leave some samples on chart. Will need further evaluation for ischemic component and further titration of medications which can be done as an outpatient Recommend follow-up with Dr. Sears in the near future. BMP 1-2 weeks after discharge to [facility] (5) At risk for sudden cardiac : Code(s): Z91.89 - Other specified personal risk factors, not elsewhere classified Status: Acute Assessment and Plan: With this degree of left ventricular dysfunction the patient is at risk of sudden cardiac . Discussed extensively with patient; written material provided Discussed extensively with the patient's daughter Magui Patient desires a Life Vest, which I will order and likely it can be placed tomorrow Discussed with Dr. Rainey Probable discharge tomorrow after LifeVest fitted and placed, for follow-up with Dr. Sears in the near future (6) Tobacco abuse: Code(s): Z72.0 - Tobacco use Status: Acute Assessment and Plan: Patient smokes cigarettes, having trouble with nicotine withdrawal Nicotine patch provided Subjective Date/time seen: Patient with a history of CAD followed by Dr. Sears of [facility] in [place], h/o coronary interventions and LV aneurysm, admitted with a variety of complaints as well as some atypical chest and epigastric discomfort.? Her troponins were elevated in the emergency room and she was started on a heparin drip.? Troponins were 0.164, 0.168, 0.161 and 0.094.? She was seen by Dr. Lacy who did not think she had ACS and did not need an urgent cardiac catheterization.? She was placed on a heparin drip, which was discontinued 01/06/2022. Interval history: 01/06/22? 16:39:? Patient upset that she has been NPO but has not been able to get her gallbladder ultrasound done today.? Feels a lot better, no further problems with the migratory chest pain, abdominal discomfort or belching.? Granddaughter at bedside; apparently there is some known heart damage but unclear of the extent.? Patient requests nicotine patch; smokes 1 pack per day at home; started on a nicotine patch. She would like to go home soon. Echo showed EF of 15-20% 01/07/22 12:24 not feeling well today, but nonspecific. Feels a little unsteady on her feet at times; home she walks holding onto furniture. No chest pain, shortness of breath, acid reflux, abdominal discomfort. Gallbladder ultrasound showed mildly dilated ducts but no stones. More fatigue over the past 2 months. Tele: N
[2022-01-07] MEDS: SACUBITRIL/VALSARTAN 24-26 MG TABLET 0.5 TAB PO (20:31)
[2022-01-07] MEDS: BENZOCAINE/MENTHOL (*BKC) 18 EA LOZENGE 1 LOZENGE PO (20:32)
[2022-01-07] MEDS: guaiFENesin/DEXTROMETHORPHAN 10 ML UDC 5 ML PO (22:16)
[2022-01-08] VITALS (15 sets, daily range): BP systolic 108–128; BP diastolic 65–87; PULSE 82–104; RESP 14–18; TEMP 36.4–36.8; O2SAT 96–98; BMI 27.4
[2022-01-08] MEDS: guaiFENesin/DEXTROMETHORPHAN 10 ML UDC 5 ML PO (04:32)
[2022-01-08] MEDS: ALBUTEROL SULFATE NEB 2.5 MG/3 ML INH INHALATION ×2 (08:21→14:27)
[2022-01-08] MEDS: IPRATROPIUM BR 0.02% INH SOLN 0.5 MG/2.5 ML VIAL INHALATION ×2 (08:21→14:27)
--- NOTE | 2022-01-08 08:27 | PM.IMPN ---
Subjective Date/time seen: 01/08/22 08:27 Objective Data Vital Signs Vital Signs: Vital Signs - 24 hr 01/07/22 08:30 01/07/22 09:20 01/07/22 12:00 Temperature 36.3 C L Pulse Rate 91 104 H 93 Respiratory Rate 16 14 Blood Pressure 121/82 Pulse Oximetry 98 Oxygen Delivery 01/07/22 10:00 01/07/22 12:00 01/07/22 12:00 Temperature Pulse Rate 100 89 Respiratory Rate Blood Pressure Pulse Oximetry 96 Oxygen Delivery Room Air 01/07/22 14:12 01/07/22 14:23 01/07/22 16:00 Temperature 36.6 C Pulse Rate 103 H 104 H 104 H Respiratory Rate 16 16 16 Blood Pressure 120/81 Pulse Oximetry 97 Oxygen Delivery 01/07/22 14:00 01/07/22 16:00 01/07/22 16:00 Temperature Pulse Rate 100 103 H Respiratory Rate Blood Pressure Pulse Oximetry 98 Oxygen Delivery Room Air 01/07/22 18:00 01/07/22 20:00 01/07/22 20:31 Temperature 36.9 C Pulse Rate 100 100 105 H Respiratory Rate 16 Blood Pressure 118/67 Pulse Oximetry 96 Oxygen Delivery 01/07/22 20:56 01/07/22 21:04 01/08/22 00:00 Temperature 36.4 C Pulse Rate 103 H 103 H 90 Respiratory Rate 20 20 16 Blood Pressure 110/65 Pulse Oximetry 97 Oxygen Delivery 01/07/22 20:00 01/07/22 22:00 01/08/22 00:00 Temperature Pulse Rate 102 H 86 85 Respiratory Rate Blood Pressure Pulse Oximetry Oxygen Delivery 01/07/22 20:00 01/08/22 00:00 01/08/22 02:00 Temperature Pulse Rate 99 Respiratory Rate Blood Pressure Pulse Oximetry Oxygen Delivery Room Air Room Air 01/08/22 04:00 01/08/22 04:00 01/08/22 06:00 Temperature 36.4 C Pulse Rate 92 89 82 Respiratory Rate 18 Blood Pressure 125/84 Pulse Oximetry 98 Oxygen Delivery 01/08/22 04:00 01/08/22 08:21 Temperature Pulse Rate 89 Respiratory Rate 18 Blood Pressure Pulse Oximetry Oxygen Delivery Room Air Intake/Output Intake/Output: Intake & Output 01/05/22 01/06/22 01/07/22 01/08/22 23:59 23:59 23:59 23:59 Intake Total 1630 1780 Output Total 200 1320 1450 1400 Balance -200 310 330 -1400 Meds/Results Medications: Active Medications Generic Name Dose Route Start Last Admin Trade Name Freq PRN Reason Stop Dose Admin Acetaminophen 650 mg 01/05/22 21:43 01/05/22 22:15 Acetaminophen 325 Mg Tablet PO 650 mg Q6H PRN Administration Mild Pain (1-3) or Fever Albuterol 1 puff 01/05/22 20:49 Albuterol Sulfate (*Sp) Aerosol 1 Puff INHALATION DAILY PRN Shortness Of Breath Albuterol 2.5 mg 01/05/22 20:55 01/08/22 08:21 Albuterol Sulfate Neb 2.5 Mg/3 Ml Inh INHALATION 2.5 mg TIDRT DA Administration Aspirin 81 mg 01/06/22 09:00 01/07/22 09:19 Aspirin 81 Mg Enteric Tablet PO 81 mg QAM DA Administration Atorvastatin Calcium 20 mg 01/06/22 09:00 01/07/22 09:20 Atorvastatin 20 Mg Tablet PO 20 mg DAILY DA Administration Benzocaine 1 lozenge 01/05/22 20:53 01/07/22 20:32 Benzocaine/Menthol (*Bkc) 18 Ea Lozenge PO 1 lozenge Q2-4H PRN Administration Cough Diphenhydramine HCl 25 mg 01/05/22 20:49 Diphenhydramine Hcl Cap 25 Mg Capsule PO TID PRN Nasal Congestion Enoxaparin Sodium 40 mg 01/08/22 09:00 Enoxaparin 40 Mg/0.4 Ml Syringe SUB-Q DAILY DA Fluticasone Propionate 1 spray 01/06/22 09:00 01/07/22 16:18 Fluticasone Propionate 0.05% Na Spr 16 Gm Btl (*Bkc) NASAL Not Given BID DA Guaifenesin/Dextromethorphan 5 ml 01/07/22 21:52 01/08/22 04:32 Guaifenesin/Dextromethorphan 10 Ml Udc PO 5 ml Q4H PRN Administration Cough Ipratropium [place] 0.5 mg 01/05/22 20:55 01/08/22 08:21 Ipratropium Br 0.02% Inh Soln 0.5 Mg/2.5 Ml Vial INHALATION 0.5 mg TIDRT DA Administration Metoprolol Tartrate 25 mg 01/05/22 21:00 01/07/22 20:31 Metoprolol Tartrate 25 Mg Tablet PO 25 mg Q12H DA Administration Nicotine 1 patch 01/06/22 17:00 0
[2022-01-08] MEDS: ENOXAPARIN 40 MG/0.4 ML SYRINGE SUB-Q (09:21)
[2022-01-08] MEDS: SACUBITRIL/VALSARTAN 24-26 MG TABLET 0.5 TAB PO (09:21)
[2022-01-08] MEDS: METOPROLOL TARTRATE 25 MG TABLET PO (09:22)
[2022-01-08] MEDS: SPIRONOLACTONE 12.5 MG TABLET PO (09:22)
[2022-01-08] MEDS: ATORVASTATIN 20 MG TABLET PO (09:23)
[2022-01-08] MEDS: NICOTINE (*PBKC) 14 MG PATCH 1 PATCH TRANSDERM (09:23)
[2022-01-08] MEDS: ASPIRIN 81 MG ENTERIC TABLET PO (09:23)
[2022-01-08] MEDS: FLUTICASONE PROPIONATE 0.05% NA SPR 16 GM BTL (*BKC) 1 SPRAY NASAL (09:23)
[2022-01-08 11:07] LABS: Basophils Percent Auto 0.3 % (0.2-1.2); Eosinophils Absolute Auto 0.1 K/mm3 (0-0.3); Eosinophils Percent Auto 0.6 % (0-4.4); Hematocrit 43.4 % (37.0-47.0); Hemoglobin 13.8 g/dL (12.0-15.0); Immature Granulocyte Absolute 0.02 K/mm3 (0.00-0.031); Immature Granulocyte Percent A 0.3 % (0-0.5); Lymphocytes Absolute Auto 1.16 K/mm3 (0.9-3.2); Lymphocytes Percent Auto 14.7 % (18.3-44.2); Mean Corpuscular HGB Conc 31.8 g/dl (32-36); Mean Corpuscular Hemoglobin 29.7 pg (26-34); Mean Corpuscular Volume 93.5 fl (80-100); Mean Platelet Volume 10.8 fl (7.4-10.4); Monocytes Absolute Auto 0.5 K/mm3 (0.1-0.6); Monocytes Percent Auto 5.7 % (2.6-8.5); Neutrophils Absolute Auto 6.2 K/mm3 (1.3-6.7); Neutrophils Percent Auto 78.4 % (45.5-73.1); Platelet Count Result 231 k/mm3 (150-375); Red Blood Count 4.64 M/mm3 (4.2-5.4); Red Cell Distribution Width 13.7 % (11.5-14.5); White Blood Count 7.9 K/mm3 (4.5-10.0)
[2022-01-08 11:22] LABS: Anion Gap 12 mmol/L (8-16); Blood Urea Nitrogen 21 mg/dL (7-17); Carbon Dioxide 26 mmol/L (22-30); Chloride 96 mmol/L (98-107); Estimated CRCL calculation 43 ml/min; Estimated Glomerular Filt Rate 60; Glucose 225 mg/dL (65-110); Potassium 3.6 mmol/L (3.4-5.0); Sodium 134 mmol/L (137-145)
--- NOTE | 2022-01-08 11:34 | PM.PNCARD ---
Progress Note: A&P Assessment and Plan (1) Elevated troponin: Code(s): R77.8 - Other specified abnormalities of plasma proteins Status: Acute Assessment and Plan: Symptoms were atypical. Elevated troponins, flat curve then declined, symptoms atypical Doubt ACS No evolution of EKG changes (lateral T wave inversion, possible ischemia, appears old and stable) Heparin discontinued (2) Chest pain: Code(s): R07.9 - Chest pain, unspecified Status: Acute Assessment and Plan: Atypical chest pain, abdominal pain. Gallbladder ultrasound showed no stones History of GI problems. (3) History of coronary artery disease: Code(s): Z86.79 - Personal history of other diseases of the circulatory system Status: Acute Assessment and Plan: History of CAD, stents in the past, followed by Dr. Smart in [place] Continue aspirin, atorvastatin, metoprolol (4) Cardiomyopathy: Code(s): I42.9 - Cardiomyopathy, unspecified Status: Acute Assessment and Plan: Significant cardiomyopathy, EF 15-20% with cardiomegaly etc.. History of left ventricular aneurysm; however, this severe degree of LV dysfunction appears new. Patient is taking metoprolol and lisinopril at home; may benefit from the addition of spironolactone and changing lisinopril to Entresto. Will start Entresto at 24/26 mg half a tablet b.i.d.. Will leave some samples on chart. Will need further evaluation for ischemic component and further titration of medications which can be done as an outpatient Recommend follow-up with Dr. Sears in the near future. BMP 1-2 weeks after discharge to [facility] (5) At risk for sudden cardiac : Code(s): Z91.89 - Other specified personal risk factors, not elsewhere classified Status: Acute Assessment and Plan: With this degree of left ventricular dysfunction the patient is at risk of sudden cardiac . Patient desires a Life Vest, this has been ordered. Awaiting placement. Ok for discharge today after LifeVest fitted and placed follow-up with Dr. Sears in the near future (6) Tobacco abuse: Code(s): Z72.0 - Tobacco use Status: Acute Assessment and Plan: Patient smokes cigarettes, having trouble with nicotine withdrawal Nicotine patch provided Subjective Date/time seen: 01/08/22 11:34 cardiology follow up for chest pain, elevated troponin, cardiomyopathy She feels well this morning. States she had some pain in her left breast this morning that was relieved after belching. Denies any swelling, shortness of breath, orthopnea, palpitations. Review of Systems Constitutional: Constitutional: Denies fever(s) and Reports lethargy Eyes: Eyes: Reports no additional eye complaints ENT: Reports system reviewed and no additional complaints, except as documented Cardiovascular: Cardiovascular: Reports as per HPI, Denies chest pain, Denies pedal edema, Denies lightheadedness and Denies dyspnea Respiratory: Respiratory: Reports no additional respiratory complaints, Denies chest congestion and Denies dyspnea Gastrointestinal: Gastrointestinal: Reports as per HPI, Denies abdominal pain, Denies hematochezia and Reports nausea Musculoskeletal: Musculoskeletal: Reports no additional musculoskeletal complaints Integumentary/Breasts: Skin/Breast: Reports system reviewed and no additional complaints, except as docu Neurologic: Reports system reviewed and no additional complaints, except as documented, Denies behavioral changes and Denies confusion Psychiatric: Psychiatric: Reports anxiety, Denies behavioral changes and Denies confusion Endocrine: Endocrine: Reports no additional endocrine complaints Hematologic/Lymphatic: Hematologic/Lymphatic: Reports no additional hematologic/lymphatic complaints Allergic/Immunologic: Allergic/Immunologic: Reports no additional allergic/immunologic complaints Exam Narrative: P
--- NOTE | 2022-01-08 12:49 | PC.NURSE ---
[facility] flyer was given to patient.
--- NOTE | 2022-01-08 14:51 | PCNSR ---
On 01/08/22, the student, Juan Gómez, provided care and completed [facility] documentation on this patient. I have reviewed the student's documentation and agree with the findings.
--- NOTE | 2022-01-08 16:47 | PM.DS ---
DS: Admitting Diagnosis Discharge Date 01/08/22 Admitting Diagnosis Abdominal Pain DS: Discharge Diagnosis Discharge Diagnosis (1) Chest pain: Code(s): R07.9 - Chest pain, unspecified Status: Acute Assessment and Plan: Echo with EF 15-20%, no thrombus, severe global hypokinesis, aortic stenosis. BP has tolerated entresto and spironolactone well. Patient improved and now has life vest. Will discharge to home with follow up with Deputy Clerk Of Court. Patient has an appointment with her nitroglycerin nitrator operator batch tomorrow morning. - Her nitroglycerin nitrator operator batch is Dr. Sears at [place] -Appreciate recommendations from Cardiology -Continue sacubitril/valsartan 24-26 half a tab BID -Continue spironolactone 12.5 mg daily (2) Abdominal pain: Code(s): R10.9 - Unspecified abdominal pain Status: Acute Assessment and Plan: RUQ shows intra and extrahepatic duct dilation but no stones or cholecystitis. Will monitor. (3) Troponin I above reference range: Code(s): R77.8 - Other specified abnormalities of plasma proteins Status: Acute Assessment and Plan: Appreciate Cardiology recommendations. (4) COPD (chronic obstructive pulmonary disease): Code(s): J44.9 - Chronic obstructive pulmonary disease, unspecified Status: Acute Assessment and Plan: Patient does not appear to be having a COPD exacerbation. -Continue duo nebs as PRN -Continue Spiriva (5) Tobacco abuse: Code(s): Z72.0 - Tobacco use Status: Acute Assessment and Plan: Nicotine patch. (6) HTN (hypertension), malignant: Code(s): I10 - Essential (primary) hypertension Status: Acute Assessment and Plan: Continue metoprolol. Lisinopril has been discontinued as entresto was started. (7) Chronic GERD: Code(s): K21.9 - Gastro-esophageal reflux disease without esophagitis Status: Acute Assessment and Plan: Pantoprazole PRN. DS: Summary Hospital Course Reason for hospitalization: Abdominal Pain Hospital Course: 86F with a past medical history of coronary artery disease, gastroesophageal reflux disease, chronic obstructive pulmonary disease, tobacco abuse who presented to the emergency department for abdominal pain and somehow chest pain was worked up. The patient had a history of cardiac stents and was followed by Dr. Sears in [place]. Cardiology was consulted and the patient was found to have new onset heart failure with reduced ejection fraction of 15-20% with severe left ventricle dysfunction. Patient was started on entresto and spironolactone. Blood pressure tolerated this well. The patient was fitted with a life vest. The patient scheduled an appointment with her nitroglycerin nitrator operator batch for the day after discharge. The patient was discharged to home on the new medications. Right upper quadrant ultrasound showed intra and extra hepatic duct dilation that was suspected to be age related and no stones or cholecystitis. Time Spent with Patient Time attestation: Total time spent providing and/or coordinating discharge services: Exam Narrative: GENERAL: NAD, cooperative HEENT: Normocephalic, atraumatic, anicteric NECK: Supple CV: Normal S1, S2, RRR, No MRG RESP: CTAB, Normal work of breathing. Abdomen: Soft, non-tender, non-distended EXTREMITIES: Warm and well perfused, no clubbing, cyanosis, or edema. SKIN: warm, dry and intact. NEURO: CN 2-12 grossly intact. DS: Data Data Completed and Pending Labs on day of discharge: Labs from last 24 hours 01/08/22 01/08/22 10:53 10:53 WBC 7.9 RBC 4.64 Hgb 13.8 Hct 43.4 MCV 93.5 MCH 29.7 MCHC 31.8 L RDW 13.7 Plt Count 231 MPV 10.8 H Immature Gran % (Auto) 0.3 Neut % (Auto) 78.4 H Lymph % (Auto) 14.7 L [place] % (Auto) 5.7 Eos % (Auto) 0.6 Baso % (Auto) 0.3 Lymph # (Auto) 1.16 [place] # (Auto) 0.5 Eos # (Auto) 0.1 Baso # (Auto) 0
== END 2022-01-08 19:04 | disposition home or self-care (01) | DRG 293 ==
LOC: ANHED 14:27 → ANHIMU 16:05
PROVIDERS: Nurse Practitioner; Physician Assistant; Admitting Provider Chiropractor; Emergency Provider Emergency Medicine; PCP Family Medicine; Visit Provider Family Medicine
DX: I11.0 Hypertensive heart disease with heart failure (principal); I50.20 Unspecified systolic (congestive) heart failure; I42.9 Cardiomyopathy, unspecified; K83.9 Disease of biliary tract, unspecified; R07.89 Other chest pain; Z20.822 Contact with and (suspected) exposure to COVID-19; F17.210 Nicotine dependence, cigarettes, uncomplicated; I25.2 Old myocardial infarction; I25.10 Atherosclerotic heart disease of native coronary artery without angina pectoris; I44.7 Left bundle-branch block, unspecified; J44.9 Chronic obstructive pulmonary disease, unspecified; K21.9 Gastro-esophageal reflux disease without esophagitis; R77.8 Other specified abnormalities of plasma proteins; R06.09 Other forms of dyspnea; Z95.5 Presence of coronary angioplasty implant and graft; Z90.710 Acquired absence of both cervix and uterus; Z90.49 Acquired absence of other specified parts of digestive tract
CPT/HCPCS: 36415; 71046; 76705; 80048; 80053; 82728; 82948; 83605; 83615; 83690; 83735; 84443; 84484; 85025; 85610; 85730; 93005; 94640; 96365; 96366; 99285; A9270; C8929; C9803; G0378; J1644; J1650; J2920; Q9957; U0003; U0005